=== PATIENT | male | born 1965 | race Caucasian/White ===

== ENCOUNTER 2019-05-30 13:05 | Emergency (ER) | payer OTHER ==
[~2019-05-30] VITALS: Ht 167.6 cm; Wt 63.5 kg
[2019-05-30] MEDS ORDERED: METF-442 PO (13:24)
[2019-05-30] MEDS ORDERED: GLIM2TAB3 PO (13:24)
--- NOTE | 2019-05-30 13:31 | NUR ---
Dr Galvin at the bedside for MSE.
[2019-05-30] MEDS ORDERED: BENZONATATE 100 MG CAPSULE ONE (13:36)
[2019-05-30] MEDS ORDERED: BENZONATATE 100 MG CAPSULE PO ONE (13:45)
--- NOTE | 2019-05-30 14:05 | NUR ---
Per Dr Galvin request, instructed patient to take his diabetic medication HANNAH, and recheck his blood glucose.
--- NOTE | 2019-05-30 14:07 | NUR ---
Patient discharged to home in stable conditon. Written and verbal after care instructions given. Patient verbalizes understanding of instructions.
[2019-05-30 14:10] VITALS: BP 140/66
== END 2019-05-30 14:10 | disposition home or self-care (01) ==
LOC: ER 13:05
DX: J20.9 Acute bronchitis, unspecified (principal); E11.9 Type 2 diabetes mellitus without complications; F17.210 Nicotine dependence, cigarettes, uncomplicated; Z79.84 Long term (current) use of oral hypoglycemic drugs
CPT/HCPCS: 71045; A4663

== ENCOUNTER 2019-07-10 09:32 | Emergency (ER) | payer OTHER ==
[~2019-07-10] VITALS: Ht 160 cm; Wt 61.2 kg
[~2019-07-10 09:32] MED LIST: GLIM2TAB31 PO; METF-442 PO
[2019-07-10] MEDS ORDERED: PANTOPRAZOLE SODIUM 40 MG TABLET.DR PO ONE ×2 (09:54→10:00)
[2019-07-10] MEDS ORDERED: MAG HYDROX/AL HYDROX/SIMETH 30 ML LIQUID UDC ONE (09:54)
[2019-07-10] MEDS ORDERED: DICYCLOMINE HCL LIQ 10 MG/5 ML UDC ONE (09:55)
[2019-07-10] MEDS ORDERED: MAG HYDROX/AL HYDROX/SIMETH 30 ML LIQUID UDC PO ONE (10:00)
[2019-07-10] MEDS ORDERED: DICYCLOMINE HCL LIQ 10 MG/5 ML UDC PO ONE (10:00)
[2019-07-10 10:26] VITALS: BP 102/70
--- NOTE | 2019-07-10 10:26 | NUR ---
Patient discharged to home in stable conditon. Written and verbal after care instructions given. Patient verbalizes understanding of instructions.pt says feels better. denies any pain or nausea.
[2019-07-10 10:29] LABS: *CLARITY,URINE CLEAR (CLEAR); *COLOR,URINE YELLOW (YELLOW)
[2019-07-10 10:30] LABS: *BILIRUBIN,URIN NEGATIVE (NEGATIVE); *BLOOD, URINE NEGATIVE (NEGATIVE); *KETONES,URINE 2+ (NEGATIVE); *UROBILINOGEN,URINE 0.2 E.U./dl (NORMAL); LEUKOCYTE ESTERASE ,URINE NEGATIVE (NEGATIVE); NITRITE, URINE NEGATIVE (NEGATIVE); UGLUCOSE 3+ (NEGATIVE)
== END 2019-07-10 10:27 | disposition home or self-care (01) ==
LOC: ER 09:32
DX: K21.9 Gastro-esophageal reflux disease without esophagitis (principal); E11.9 Type 2 diabetes mellitus without complications; F17.210 Nicotine dependence, cigarettes, uncomplicated; Z79.899 Other long term (current) drug therapy
CPT/HCPCS: A4663

== ENCOUNTER 2020-08-13 11:18 | Emergency (ER) | payer OTHER ==
[~2020-08-13] VITALS: Ht 167.6 cm; Wt 61.7 kg
[2020-08-13] MEDS ORDERED: GABA-532 PO (11:44)
[2020-08-13] MEDS ORDERED: VOLTAREN PO (11:44)
--- NOTE | 2020-08-13 12:08 | NUR ---
Dr Arrieta at the bedside for MSE.
[2020-08-13] MEDS ORDERED: HYDR-3980 PO (12:10)
[2020-08-13] MEDS ORDERED: KETOROLAC TROMETHAMINE 60 MG INJ IM ONE ×2 (12:15→12:19)
[2020-08-13 12:26] VITALS: BP 115/94
--- NOTE | 2020-08-13 12:26 | NUR ---
Patient discharged to home in stable condition. Written and verbal after care instructions given. Patient verbalizes understanding of instructions. Stressed follow up or return to ER for worsening s/s.
== END 2020-08-13 12:27 | disposition home or self-care (01) ==
LOC: ER 11:18
DX: M54.42 Lumbago with sciatica, left side (principal); E11.9 Type 2 diabetes mellitus without complications; Z79.84 Long term (current) use of oral hypoglycemic drugs; K21.9 Gastro-esophageal reflux disease without esophagitis; Z79.899 Other long term (current) drug therapy
CPT/HCPCS: 96372; 99283; J1885; A4663

== ENCOUNTER 2021-06-10 14:37 | Emergency (ER) | payer OTHER ==
[~2021-06-10] VITALS: Ht 157.5 cm; Wt 60.8 kg
[~2021-06-10 14:37] MED LIST changes: +GABA-532 PO; +HYDR-3980 PO; +VOLTAREN PO
[2021-06-10 16:47] LABS: HEMATOCRIT 46.5 % (36.7-47.1); MEAN CORPUSCULAR HEMOGLOBIN 31.4 uug (23.8-33.4); MEAN CORPUSCULAR VOLUME 89.1 fL (73.0-96.2); PLATELET COUNT (AUTO) 226 K/uL (152-348)
[2021-06-10 16:51] LABS: CREATININE 0.8 mg/dL (0.6-1.3)
[2021-06-10 17:02] LABS: BILIRUBIN,DIRECT 0.2 mg/dL (0.0-0.2); BILIRUBIN,TOTAL 0.7 mg/dL (0.2-1.0); TOTAL PROTEIN, SERUM 7.9 g/dL (6.4-8.2)
[2021-06-10] MEDS ORDERED: IBUPROFEN 800 MG TABLET PO ONE (18:00)
[2021-06-10] MEDS ORDERED: IBUPROFEN 800 MG TABLET ONE (18:06)
[2021-06-10] MEDS ORDERED: SWABABLE VALVE TRANSFER SET EA MC ONE (18:10)
[2021-06-10] MEDS ORDERED: IV NORMAL SALINE 250 ML IV ONE (18:10)
[2021-06-10] MEDS ORDERED: IOHEXOL 350 100 ML INFUS..BTL ONE (18:10)
[2021-06-10] MEDS ORDERED: IBUP-1957 PO (18:30)
[2021-06-10] MEDS ORDERED: GABA-532 PO (18:30)
[2021-06-10] MEDS ORDERED: INSULIN REGULAR, HUMAN 300 UNIT/3 ML VIAL SQ ONE (20:00)
[2021-06-10] MEDS ORDERED: ASPI-612 PO (20:03)
[2021-06-10] MEDS ORDERED: INSULIN REGULAR, HUMAN 300 UNIT/3 ML VIAL ONE (20:12)
[2021-06-10] MEDS ORDERED: ASPIRIN 81 MG TAB.CHEW PO ONE (20:15)
[2021-06-10] MEDS ORDERED: PANTOPRAZOLE SODIUM 40 MG TABLET.DR PO ONE ×2 (20:15→20:16)
[2021-06-10] MEDS ORDERED: ASPIRIN 81 MG TAB.CHEW ONE (20:16)
--- NOTE | 2021-06-10 20:23 | NUR ---
IV removed. Catheter intact and site benign. Pressure and 4x4 gauze applied to site. No bleeding noted.
[2021-06-10 21:28] VITALS: BP 150/88
== END 2021-06-10 20:30 | disposition home or self-care (01) ==
LOC: ER 14:37
DX: R07.9 Chest pain, unspecified (principal); Z20.822 Contact with and (suspected) exposure to COVID-19; Z82.49 Family history of ischemic heart disease and other diseases of the circulatory system; E11.65 Type 2 diabetes mellitus with hyperglycemia; Z79.84 Long term (current) use of oral hypoglycemic drugs; K21.9 Gastro-esophageal reflux disease without esophagitis; L29.9 Pruritus, unspecified
CPT/HCPCS: 36415; 71045; 71275; 80048; 80076; 82962; 83880; 84484 ×2; 85025; 85379; 85730; 87426; 93005 ×2; 96372; 99285; J1815; Q9967; 70030-TC; A4663; J7050

== ENCOUNTER 2021-07-30 10:49 | Emergency (ER) | payer OTHER ==
[~2021-07-30] VITALS: Ht 165.1 cm; Wt 60.8 kg
[~2021-07-30 10:49] MED LIST changes: +ASPI-612 PO; -VOLTAREN PO
[2021-07-30] MEDS ORDERED: ASPIRIN 81 MG TAB.CHEW PO ONE (11:15)
[2021-07-30] MEDS ORDERED: ASPIRIN 81 MG TAB.CHEW ONE ×2 (11:35→11:39)
[2021-07-30 11:42] LABS: HEMATOCRIT 44.7 % (36.7-47.1); MEAN CORPUSCULAR HEMOGLOBIN 31.3 uug (23.8-33.4); MEAN CORPUSCULAR VOLUME 89.9 fL (73.0-96.2); PLATELET COUNT (AUTO) 222 K/uL (152-348)
[2021-07-30 11:45] LABS: CREATININE 0.9 mg/dL (0.6-1.3); POTASSIUM 4.9 mmol/L (3.5-5.1)
[2021-07-30 11:57] LABS: BILIRUBIN,DIRECT 0.2 mg/dL (0.0-0.2); TOTAL PROTEIN, SERUM 7.5 g/dL (6.4-8.2)
--- NOTE | 2021-07-30 12:33 | NUR ---
ER regitration/admitting staff notified re: plan to admit
--- NOTE | 2021-07-30 12:39 | NUR ---
Pt is resting and in no acute distress at this time. Pt aware of plan to admit for tele observation. Will begin admission process with insurance verification.
--- NOTE | 2021-07-30 12:49 | NUR ---
Cardiac diet tray provided.
--- NOTE | 2021-07-30 13:52 | NUR ---
Olga from [facility] confirmed having received all necessary medical information. Will call us back with admit information when available.
[2021-07-30] MEDS ORDERED: INSU100V7 SQ (14:34)
[2021-07-30] MEDS ORDERED: DICL75TA5 PO (14:34)
[2021-07-30] MEDS ORDERED: EMPA25TA PO (14:34)
[2021-07-30] MEDS ORDERED: GABA-532 PO (14:34)
[2021-07-30] MEDS ORDERED: INSU100C4 SQ (14:34)
--- NOTE | 2021-07-30 15:36 | NUR ---
Nathan (not Olga) provided information: Pt will be going to [facility] (Tele bed) AC Rm 20 Mireya will be accepting nurse, number for [phone] [facility] [employer], ETA [phone]
--- NOTE | 2021-07-30 15:43 | NUR ---
Report given to GAGE Herring at [facility] ([phone])
--- NOTE | 2021-07-30 16:37 | NUR ---
VSS. Pt resting.
--- NOTE | 2021-07-30 16:51 | NUR ---
Pt ambulated to restroom. Transport at bedside. Pt in stable condition at time of transport.
== END 2021-07-30 17:00 | disposition short-term general hospital (02) ==
LOC: ER 10:49
DX: R07.9 Chest pain, unspecified (principal); R00.0 Tachycardia, unspecified; K21.9 Gastro-esophageal reflux disease without esophagitis; E11.65 Type 2 diabetes mellitus with hyperglycemia; Z79.4 Long term (current) use of insulin; Z79.84 Long term (current) use of oral hypoglycemic drugs; Z20.822 Contact with and (suspected) exposure to COVID-19
CPT/HCPCS: 36415; 70030-TC; 71045; 85025; 85730; 93005; A4663

== ENCOUNTER 2022-05-09 11:02 | Emergency (ER) | payer OTHER ==
[~2022-05-09] VITALS: Ht 167.6 cm; Wt 53.5 kg
[~2022-05-09 11:02] MED LIST changes: +DICL75TA5 PO; +EMPA25TA PO; -GLIM2TAB31 PO; -HYDR-3980 PO; +INSU100C4 SQ; +INSU100V7 SQ; -METF-442 PO
[2022-05-09] MEDS ORDERED: KETOROLAC TROMETHAMINE 15 MG INJ IVP ONE (11:30)
[2022-05-09] MEDS ORDERED: IV NORMAL SALINE 1000 ML BAG IV ONE ×2 (11:30→12:30)
[2022-05-09] MEDS ORDERED: ONDANSETRON 4 MG/2 ML VIAL IV ONE (11:30)
[2022-05-09] MEDS ORDERED: FAMOTIDINE. 20 MG/2 ML VIAL IV ONE ×2 (11:30→11:41)
[2022-05-09 11:40] LABS: HEMATOCRIT 42.5 % (36.7-47.1); MEAN CORPUSCULAR HEMOGLOBIN 31.2 uug (23.8-33.4); MEAN CORPUSCULAR VOLUME 90.7 fL (73.0-96.2); PLATELET COUNT (AUTO) 224 K/uL (152-348)
[2022-05-09] MEDS ORDERED: ONDANSETRON 4 MG/2 ML VIAL ONE (11:40)
[2022-05-09] MEDS ORDERED: KETOROLAC TROMETHAMINE 15 MG INJ ONE (11:40)
[2022-05-09 12:02] LABS: BILIRUBIN,DIRECT 0.2 mg/dL (0.0-0.2); BILIRUBIN,TOTAL 0.7 mg/dL (0.2-1.0); CREATININE 1.3 mg/dL (0.6-1.3); POTASSIUM 4.5 mmol/L (3.5-5.1); TOTAL PROTEIN, SERUM 7.2 g/dL (6.4-8.2)
[2022-05-09] MEDS ORDERED: INSULIN REGULAR, HUMAN 300 UNIT/3 ML VIAL SQ ONE (12:30)
--- NOTE | 2022-05-09 12:30 | NUR ---
Patient presents to the ER, C/O abdominal pain/nausea/vomiting. Patient A/O X 4, seen by the MD #[id number] angio-cath to (LT) F/A, blood collected and sent. Patient placed on the teletypesetter monitor, NSR observed. Patient medicated as per MD orders (see eMAR). Patient transported safely via stretcher to and from [place]. Patient is stable on the stretcher, in the lowest position, call young within reach and awaiting disposition.
[2022-05-09] MEDS ORDERED: ONDA4TAB11 PO (12:40)
[2022-05-09] MEDS ORDERED: HUM INSULIN NPH/REG INSULIN HM 70/30 1000 UNITS/10 ML VIAL SQ ONE (12:55)
--- NOTE | 2022-05-09 13:30 | NUR ---
Patient has critical serum glucose 609mg/dl, MD aware; patient medicated see (eMAR). Patient is stable on the stretcher, in the lowest position, call young within reach and awaiting disposition.
--- NOTE | 2022-05-09 15:20 | NUR ---
Patient seen and cleared for discharge home, after consuming a entire lunch tray. Angio-cath removed, site WNL and dry protective/pressure dressing in place. Discharge instructions provided. Patient stable, left ambulatory.
== END 2022-05-09 15:30 | disposition home or self-care (01) ==
LOC: ER 11:02
DX: E11.65 Type 2 diabetes mellitus with hyperglycemia (principal); R10.10 Upper abdominal pain, unspecified; R11.2 Nausea with vomiting, unspecified; E86.0 Dehydration; R19.7 Diarrhea, unspecified; Z79.4 Long term (current) use of insulin; Z79.84 Long term (current) use of oral hypoglycemic drugs; Z79.82 Long term (current) use of aspirin; K21.9 Gastro-esophageal reflux disease without esophagitis; Z86.19 Personal history of other infectious and parasitic diseases
CPT/HCPCS: 99291; 74176; 96374; 96375; 96361; 80076; 80048; 82962; 83690; 85025; 36415; 96372; J3490; J1815; J1885; J2405; J7040 ×2; A4663

== ENCOUNTER 2023-04-01 16:24 | Emergency (ER) | payer OTHER ==
[~2023-04-01] VITALS: Ht 157.5 cm; Wt 54.4 kg
[~2023-04-01 16:24] MED LIST changes: +METO-295 PO; +ONDA4TAB11 PO; +PANT20TA2 PO
[2023-04-01 16:54] VITALS: O2SAT 97
== END 2023-04-01 17:24 | disposition left against medical advice (07) ==
LOC: ER 16:29
DX: Z53.21 Procedure and treatment not carried out due to patient leaving prior to being seen by health care provider (principal); K21.9 Gastro-esophageal reflux disease without esophagitis; E11.9 Type 2 diabetes mellitus without complications; F17.210 Nicotine dependence, cigarettes, uncomplicated; Z79.82 Long term (current) use of aspirin; Z79.899 Other long term (current) drug therapy
CPT/HCPCS: A4606; A4663

== ENCOUNTER 2023-04-26 13:54 | Inpatient (IN) | payer OTHER ==
[~2023-04-26] VITALS: Ht 167.6 cm; Wt 55.3 kg
[2023-04-26] MEDS ORDERED: IV NORMAL SALINE 1000 ML BAG IV ONE (14:30)
[2023-04-26] MEDS ORDERED: KETOROLAC TROMETHAMINE 15 MG INJ IVP ONE (14:30)
[2023-04-26] MEDS ORDERED: METOCLOPRAMIDE HCL 10 MG/2 ML VIAL IV ONE (14:30)
[2023-04-26 14:39] LABS: BASOPHILS % (AUTO) 0.5 % (0.0-2.0); EOSINOPHILS % (AUTO) 0.4 % (0.0-7.0); HEMATOCRIT 47.3 % (36.7-47.1); HEMOGLOBIN 16.2 g/dL (12.5-16.3); LYMPHOCYTES % (AUTO) 18.2 % (20.5-51.5); MEAN CORPUSCULAR HEMOGLOBIN 31.8 uug (23.8-33.4); MEAN CORPUSCULAR HGB CONC 34 g/dL (32.5-36.3); MEAN CORPUSCULAR VOLUME 92.5 fL (73.0-96.2); MONOCYTES # (AUTO) 0.6 K/uL (0.1-1.30); MONOCYTES % (AUTO) 11.5 % (0.0-11.0); NEUTROPHILS # (AUTO) 3.9 K/uL (1.8-8.9); NEUTROPHILS % (AUTO) 69.4 % (38.5-71.5); PLATELET COUNT (AUTO) 277 K/uL (152-348); RED BLOOD CELL COUNT(AUTO) 5.11 MIL/uL (4.06-5.63); RED CELL DISTRIBUTION WIDTH 12.8 % (12.1-16.2); WHITE BLOOD COUNT (AUTO) 5.6 K/uL (3.6-10.2)
[2023-04-26 14:40] LABS: DIFFERENTIAL COMMENT 1
[2023-04-26] MEDS ORDERED: METOCLOPRAMIDE HCL 10 MG/2 ML VIAL ONE (14:41)
[2023-04-26] MEDS ORDERED: KETOROLAC TROMETHAMINE 15 MG INJ ONE (14:41)
[2023-04-26 14:51] LABS: CALCIUM 9.4 mg/dL (8.5-10.1); CARBON DIOXIDE 25 mmol/L (21-32); CHLORIDE 88 mmol/L (98-107); CREATININE 1.4 mg/dL (0.6-1.3); POTASSIUM 3.5 mmol/L (3.5-5.1); SODIUM SERUM 128 mmol/L (136-145); UREA NITROGEN, BLOOD 29 mg/dL (7-18)
[2023-04-26 14:53] LABS: GLUCOSE 606 mg/dL (74-106)
[2023-04-26 14:56] LABS: ALANINE AMINOTRANSFERASE 24 U/L (16-63); ALKALINE PHOSPHATASE 122 U/L (50-136); ASPARTATE AMINOTRANSFERASE 12 U/L (15-37); BILIRUBIN,DIRECT 0.3 mg/dL (0.0-0.2); BILIRUBIN,TOTAL 0.9 mg/dL (0.2-1.0); LIPASE 53 U/L (16-77); TOTAL PROTEIN, SERUM 7.2 g/dL (6.4-8.2)
[2023-04-26 15:30] LABS: VBG BASE EXCESS -0.9 mmol/L (-3-3); VBG HCO3 25.8 mmol/L (22-27); VBG MetHb 0.1 %; VBG O2HB 39.6 %; VBG PCO2 50.8 mmHg (40-52); VBG PH 7.323 (7.31-7.41); VBG PO2 23.4 mmHg (30-50); VBG TOTAL HEMOGLOBIN 14.1 G/dL (12.0-16.0); VENT MODE, VBG room air
[2023-04-26] MEDS ORDERED: DEXTROSE 50% 50 ML DISP.SYRIN IV PRN (19:00)
[2023-04-26] MEDS ORDERED: ONDANSETRON 4 MG/2 ML VIAL IV PRN (19:00)
[2023-04-26] MEDS ORDERED: IV NS 1000 ML 1,000 ML IV PRN (19:00)
[2023-04-26] MEDS ORDERED: ACETAMINOPHEN 325 MG TABLET PO PRN (19:00)
[2023-04-26] MEDS ORDERED: MAGNESIUM HYDROXIDE 30 ML LIQUID UDC PO PRN (19:00)
[2023-04-26] MEDS ORDERED: HYDROCODONE/APAP 10-325 MG TABLET PO PRN (20:15)
[2023-04-26 21:16] VITALS: BP 140/79; TEMP 98.4; O2SAT 99
[2023-04-26] MEDS: INSULIN REGULAR, HUMAN 300 UNITS/3 ML VIAL SQ PRN (21:42)
[2023-04-26] MEDS: BLOOD SUGAR DIAGNOSTIC 1 EACH STRIP VI SCH (21:43)
[2023-04-26] MEDS ORDERED: INSULIN REGULAR, HUMAN 300 UNIT/3 ML VIAL SQ ONE (22:00)
[2023-04-26] MEDS: HYDROCODONE/APAP 10-325 MG TABLET PO PRN (22:11)
[2023-04-27 05:43] VITALS: BP 144/83; TEMP 98; O2SAT 100
[2023-04-27] MEDS: BLOOD SUGAR DIAGNOSTIC 1 EACH STRIP VI SCH ×4 (06:42→20:21)
[2023-04-27 07:08] LABS: BASOPHILS % (AUTO) 0.7 % (0.0-2.0); EOSINOPHILS # (AUTO) 0.1 K/uL (0.0-0.7); EOSINOPHILS % (AUTO) 1.8 % (0.0-7.0); HEMATOCRIT 41.8 % (36.7-47.1); HEMOGLOBIN 14.8 g/dL (12.5-16.3); LYMPHOCYTES # (AUTO) 1.2 K/uL (0.8-4.8); LYMPHOCYTES % (AUTO) 22.4 % (20.5-51.5); MEAN CORPUSCULAR HEMOGLOBIN 31.9 uug (23.8-33.4); MEAN CORPUSCULAR HGB CONC 35 g/dL (32.5-36.3); MONOCYTES # (AUTO) 0.6 K/uL (0.1-1.30); MONOCYTES % (AUTO) 11.2 % (0.0-11.0); NEUTROPHILS # (AUTO) 3.5 K/uL (1.8-8.9); NEUTROPHILS % (AUTO) 63.9 % (38.5-71.5); PLATELET COUNT (AUTO) 235 K/uL (152-348); RED BLOOD CELL COUNT(AUTO) 4.65 MIL/uL (4.06-5.63); RED CELL DISTRIBUTION WIDTH 12.7 % (12.1-16.2); WHITE BLOOD COUNT (AUTO) 5.5 K/uL (3.6-10.2)
[2023-04-27 07:36] LABS: ALBUMIN 3.4 g/dL (3.4-5.0); BILIRUBIN,TOTAL 0.7 mg/dL (0.2-1.0); CALCIUM 8.7 mg/dL (8.5-10.1); CREATININE 0.7 mg/dL (0.6-1.3); DIFFERENTIAL COMMENT 1; MAGNESIUM 1.8 mg/dL (1.8-2.4); PHOSPHOROUS 3.7 mg/dL (2.5-4.9); POTASSIUM 3.5 mmol/L (3.5-5.1); TOTAL PROTEIN, SERUM 5.9 g/dL (6.4-8.2)
[2023-04-27 08:00] VITALS: BP 162/81; TEMP 98.4
[2023-04-27] MEDS: GABAPENTIN 100 MG CAPSULE PO SCH ×2 (08:47→13:25)
[2023-04-27] MEDS: PANTOPRAZOLE SODIUM 40 MG VIAL IV SCH (08:47)
[2023-04-27] MEDS ORDERED: Medication Not On Formulary EA (Pantoprazole Sodium (Protonix) 1 TAB) PO SCH (09:00)
[2023-04-27] MEDS: HYDROCODONE/APAP 10-325 MG TABLET PO PRN ×2 (10:11→19:57)
[2023-04-27 11:51] VITALS: BP 151/93; TEMP 98.7; O2SAT 94
[2023-04-27] MEDS: INSULIN REGULAR, HUMAN 300 UNIT/3 ML VIAL SQ PRN ×2 (12:08→16:52)
[2023-04-27] MEDS: METOCLOPRAMIDE HCL 10 MG/2 ML VIAL IV SCH ×2 (13:25→22:14)
[2023-04-27] MEDS ORDERED: INSU100V10 SQ (15:51)
[2023-04-27] MEDS ORDERED: INSU100V11 SUBCUT (15:51)
[2023-04-27 16:00] VITALS: BP 148/83; TEMP 98; O2SAT 96
[2023-04-27] MEDS: SUCRALFATE 1 G/10 ML LIQUID UDC GT SCH ×2 (16:54→20:21)
[2023-04-27] MEDS: PROTEIN SUPPLEMENT (PROSTAT) 30 ML LIQUID PO SCH (17:20)
[2023-04-27 20:12] VITALS: BP 103/68; TEMP 98.9; O2SAT 98
[2023-04-27] MEDS: INSULIN REGULAR, HUMAN 300 UNITS/3 ML VIAL SQ PRN (20:24)
[2023-04-28 04:50] VITALS: BP 151/91; TEMP 98.7; O2SAT 99
[2023-04-28] MEDS: METOCLOPRAMIDE HCL 10 MG/2 ML VIAL IV SCH (06:29)
[2023-04-28] MEDS: SUCRALFATE 1 G/10 ML LIQUID UDC GT SCH (06:30)
[2023-04-28] MEDS: BLOOD SUGAR DIAGNOSTIC 1 EACH STRIP VI SCH (06:30)
[2023-04-28] MEDS: HYDROCODONE/APAP 10-325 MG TABLET PO PRN (06:38)
[2023-04-28 07:04] LABS: BASOPHILS % (AUTO) 0.6 % (0.0-2.0); EOSINOPHILS # (AUTO) 0.1 K/uL (0.0-0.7); EOSINOPHILS % (AUTO) 1.7 % (0.0-7.0); HEMATOCRIT 41.5 % (36.7-47.1); HEMOGLOBIN 14.5 g/dL (12.5-16.3); LYMPHOCYTES # (AUTO) 1.3 K/uL (0.8-4.8); MEAN CORPUSCULAR HEMOGLOBIN 31.4 uug (23.8-33.4); MEAN CORPUSCULAR HGB CONC 35 g/dL (32.5-36.3); MEAN CORPUSCULAR VOLUME 90.1 fL (73.0-96.2); MONOCYTES # (AUTO) 0.5 K/uL (0.1-1.30); MONOCYTES % (AUTO) 10.6 % (0.0-11.0); NEUTROPHILS # (AUTO) 3.1 K/uL (1.8-8.9); NEUTROPHILS % (AUTO) 61.1 % (38.5-71.5); PLATELET COUNT (AUTO) 245 K/uL (152-348); RED BLOOD CELL COUNT(AUTO) 4.61 MIL/uL (4.06-5.63); RED CELL DISTRIBUTION WIDTH 12.6 % (12.1-16.2)
[2023-04-28 07:10] LABS: CALCIUM 8.4 mg/dL (8.5-10.1); CREATININE 0.7 mg/dL (0.6-1.3)
[2023-04-28 07:14] LABS: DIFFERENTIAL COMMENT 1
[2023-04-28] MEDS: INSULIN REGULAR, HUMAN 300 UNIT/3 ML VIAL SQ PRN (08:08)
[2023-04-28] MEDS: PANTOPRAZOLE SODIUM 40 MG VIAL IV SCH (08:09)
[2023-04-28] MEDS: PROTEIN SUPPLEMENT (PROSTAT) 30 ML LIQUID PO SCH (08:10)
[2023-04-28] MEDS ORDERED: GLUCERNA SHAKE 237 ML CAN PO SCH (09:00)
[2023-04-28] MEDS ORDERED: NICOTINE 14 MG/24HR PATCH TD SCH (09:00)
[2023-04-28] MEDS ORDERED: PANT40TA2 PO (10:14)
== END 2023-04-28 11:05 | disposition home or self-care (01) | DRG 637 ==
LOC: ER 13:57 → MEDSURG3 18:50
PROVIDERS: ADMIT Nurse Practitioner Acute Care; ATTEND Nurse Practitioner Acute Care
DX: E11.65 Type 2 diabetes mellitus with hyperglycemia (principal); N17.0 Acute kidney failure with tubular necrosis; E87.1 Hypo-osmolality and hyponatremia; K29.70 Gastritis, unspecified, without bleeding; E86.1 Hypovolemia; F17.210 Nicotine dependence, cigarettes, uncomplicated; K21.9 Gastro-esophageal reflux disease without esophagitis; N40.0 Benign prostatic hyperplasia without lower urinary tract symptoms; Z79.899 Other long term (current) drug therapy; Z79.4 Long term (current) use of insulin; Z79.82 Long term (current) use of aspirin; Z79.84 Long term (current) use of oral hypoglycemic drugs; Z90.49 Acquired absence of other specified parts of digestive tract
CPT/HCPCS: 36415; 36600; 83690; 83735; 84100; 84484; 85025; 85730; 93005; A4663; C9113; G0378; J1815; J1885; J2405; J2765; J7040